=== PATIENT | female | born 2000 | race Two or more races ===

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

== ENCOUNTER 2020-05-14 12:52 | Emergency (ER) | payer MEDICAID, OTHER ==
--- NOTE | 2020-05-14 14:20 | ER Document Report ---
ED Medical Screen (RME) - General Chief Complaint: Chest Pain Stated Complaint: CHEST PAIN/SHORTNESS OF BREATH Time Seen by Provider: 05/14/20 14:07 TRAVEL OUTSIDE OF THE U[place] IN LAST 30 DAYS: No - HPI Notes: 05/14/20 14:13 19-year-old female to the emergency department with past medical history of asthma with complaints of chest pain and shortness of breath that began this morning while she was at work. She states that initially the started while she was cooking food at work and lasted for about an hour. She states it resolved but then it began again about 1230. That is when she decided to come seek medical attention. She denies any associated diaphoresis, nausea vomiting, arm pain. She does state that it radiates through to her back. She denies any history of hypertension, diabetes or hyperlipidemia. She denies any family history of heart disease but she is not completely sure what her past medical history is. She denies any cough, fever, chills, sore throat, ear pain, headache, body aches, possible COVID-19 exposures. She denies any loss of taste or smell. She states that the pain when it is very severe does feel that worse when she is taking a big deep breath but at baseline it does not seem to get worse with movement and big deep breath. She is not currently on any exogenous hormones. She is not recently been traveling. She denies any leg swelling or leg pain. Brief medical screening exam illustrates lungs clear to auscultation and heart auscultation with no murmurs rubs or gallops. She has some mild tenderness to palpation over the anterior chest wall. I performed a brief medical screening exam on the patient determined that the patient needs further evaluation and management by main side provider. I have placed initial orders to help expedite care. - Related Data Allergies/Adverse Reactions: No Known Allergies Allergy (Unverified 02/28/19 08:00) Past Medical History - Social History Frequency of alcohol use: None Drug Abuse: Marijuana Pulmonary Medical History: Reports: Hx Asthma GI Medical History: Reports: Hx Gastroesophageal Reflux Disease - Tx in [place] 2018 Past Surgical History: Reports: Hx Orthopedic Surgery - Right knee scope 2014 Physical Exam - Vital signs Vitals: Temp Pulse Resp BP Pulse Ox 98.2 F 62 18 130/70 H 100 05/14/20 13:16 05/14/20 13:16 05/14/20 13:16 05/14/20 13:16 05/14/20 13:16 Course - Vital Signs Vital signs: Temp Pulse Resp BP Pulse Ox 98.2 F 62 18 130/70 H 100 05/14/20 13:16 05/14/20 13:16 05/14/20 13:16 05/14/20 13:16 05/14/20 13:16
[2020-05-14 15:03] LABS: APPEARANCE,URINE CLEAR; BILIRUBIN,URINE NEGATIVE (NEGATIVE); COLOR,URINE YELLOW; GLUCOSE, URINE NEGATIVE (NEGATIVE); KETONES,URINE 20 mg/dL (NEGATIVE); LEUKOCYTE ESTERASE,URINE NEGATIVE (NEGATIVE); NITRITE,URINE NEGATIVE (NEGATIVE); PROTEIN,URINE NEGATIVE (NEGATIVE); URINE SPECIFIC GRAVITY 1.014; UROBILINOGEN,URINE NEGATIVE mg/dL (<2.0)
--- NOTE | 2020-05-14 15:05 | RADIOLOGY REPORT (SQ) ---
EXAM DESCRIPTION: CHEST 2 VIEWS IMAGES COMPLETED DATE/TIME: 05/14/2020 2:53 pm REASON FOR STUDY: chest pain, SOB COMPARISON: None. EXAM PARAMETERS: NUMBER OF VIEWS: two views TECHNIQUE: Digital Frontal and Lateral radiographic views of the chest acquired. RADIATION DOSE: NA LIMITATIONS: none FINDINGS: LUNGS AND PLEURA: No opacities, masses or pneumothorax. No pleural effusion. MEDIASTINUM AND HILAR STRUCTURES: No masses or contour abnormalities. HEART AND VASCULAR STRUCTURES: Heart normal size. No evidence for failure. BONES: No acute findings. HARDWARE: None in the chest. OTHER: No other significant finding. IMPRESSION: NO ACUTE RADIOGRAPHIC FINDING IN THE CHEST. TECHNICAL DOCUMENTATION: JOB ID: [id number] 2010 [employer]- All Rights Reserved Reading location - IP/workstation name: [email or web address]
[2020-05-14 15:21] LABS: ALBUMIN 4.7 g/dL (3.7-5.6); ALKALINE PHOSPHATASE 48 U/L (50-135); ANION GAP 6 (5-19); ASPARTATE AMINO TRANSFERASE 27 U/L (5-30); BILIRUBIN,DIRECT 0.1 mg/dL (0.0-0.4); BILIRUBIN,TOTAL 1.3 mg/dL (0.2-1.3); BLOOD UREA NITROGEN 12 mg/dL (7-20); CALCIUM 9.4 mg/dL (8.4-10.2); CARBON DIOXIDE 25 mmol/L (22-30); CHLORIDE 107 mmol/L (98-107); GLUCOSE 74 mg/dL (75-110); TOTAL PROTEIN 7.6 g/dL (6.3-8.2)
[2020-05-14 17:47] LABS: ABSOLUTE EOSINOPHILS # (AUTO) 0.1 10^3/uL (0.0-0.6); ABSOLUTE LYMPHOCYTES (AUTO) 2.1 10^3/uL (0.5-4.7); ABSOLUTE MONOCYTES (AUTO) 0.4 10^3/uL (0.1-1.4); ABSOLUTE NEUT (AUTO) 3.5 10^3/uL (1.7-8.2); BASOPHILS % (AUTO) 0.4 % (0-2); HEMATOCRIT 39.1 % (36.0-47.0); HEMOGLOBIN 13.1 g/dL (12.0-15.5); LYMPHOCYTES % (AUTO) 34.7 % (13-45); MEAN CORPUSCULAR HEMOGLOBIN 29.6 pg (27.0-33.4); MEAN CORPUSCULAR HGB CONC 33.4 g/dL (32.0-36.0); MEAN CORPUSCULAR VOLUME 89 fl (80-97); PLATELET COUNT 225 10^3/uL (150-450); RED BLOOD COUNT 4.41 10^6/uL (3.72-5.28); RED CELL DISTRIBUTION WIDTH 13.2 % (11.5-14.0); SEGMENTED NEUTROPHILS % (AUTO) 56.9 % (42-78); TOTAL CELLS COUNTED % (AUTO) 100 %; WHITE BLOOD COUNT 6.1 10^3/uL (4.0-10.5)
--- NOTE | 2020-05-14 17:47 | EKG REPORT ---
SEVERITY:- NORMAL ECG - SINUS RHYTHM : Confirmed by: Dutch Farah MD 14-May-2020 17:47:00
--- NOTE | 2020-05-14 18:14 | ER Document Report ---
ED General - General Chief Complaint: Chest Pain Stated Complaint: CHEST PAIN/SHORTNESS OF BREATH Time Seen by Provider: 05/14/20 14:07 TRAVEL OUTSIDE OF THE [place].S. IN LAST 30 DAYS: No - HPI Notes: Patient is a 19-year-old female who presents emergency department for evaluation of chest pain. She describes it as a tightness. It for started while she was at work today at [employer]. She states it is a tightness in her central chest. It does not radiate. She had some associated shortness of breath. She denies any nausea, diaphoresis, near syncope. She really has not had any pain like that in the past. Pain came on without any provocation, seem to go away without any sort of clear relieving factor. She had this pain return multiple times during the day. Each time it lasted 1 to 3 hours. Again with mild associated shortness of breath. She denies any recent prolonged immobilization or surgery. No personal history of cancer. No personal or family history of DVT or PE. She has no history of cancer. She has no exogenous hormone or OCP use. - Related Data Allergies/Adverse Reactions: No Known Allergies Allergy (Unverified 02/28/19 08:00) Home Medications: None Past Medical History - General Information source: Patient - Social History Smoking Status: Never Smoker Frequency of alcohol use: None Drug Abuse: Marijuana Family History: Reviewed & Not Pertinent, Hyperlipidemia, Hypertension Pulmonary Medical History: Reports: Hx Asthma GI Medical History: Reports: Hx Gastroesophageal Reflux Disease - Tx in [place] 2018 Past Surgical History: Reports: Hx Orthopedic Surgery - Right knee scope 2014 Review of Systems - Review of Systems Constitutional: No symptoms reported EENT: No symptoms reported Cardiovascular: See HPI Respiratory: See HPI Gastrointestinal: No symptoms reported Genitourinary: No symptoms reported Musculoskeletal: No symptoms reported Skin: No symptoms reported Neurological/Psychological: No symptoms reported Physical Exam - Vital signs Vitals: Temp Pulse Resp BP Pulse Ox 98.2 F 62 18 130/70 H 100 05/14/20 13:16 05/14/20 13:16 05/14/20 13:16 05/14/20 13:16 05/14/20 13:16 - Notes Notes: Vital signs reviewed, please refer to chart. Head is normocephalic, atraumatic. Pupils equal round, reactive to light. Neck is supple without meningismus. Heart is regular rate and rhythm. Lungs are clear to auscultation bilaterally. Chest wall is minimally tender to palpation. Chest wall excursion is equal bilaterally. Abdomen is soft, nontender, normoactive bowel sounds throughout. Extremities without cyanosis, clubbing. Posterior calves are nontender. Peripheral pulses are equal. Skin is warm and dry. Patient is awake, alert, neurological exam is nonfocal. Course - Re-evaluation Re-evalutation: 05/14/20 18:12 Patient presents emergency department for evaluation of chest pain. Laboratory investigations, imaging, EKG obtained. EKG fails to show any signs of ischemia or infarction. Her chest x-ray is unremarkable. Laboratory investigations revealed no significant abnormalities. Findings were explained to the patient. At this point I do not have a clear etiology for her chest pain. She has little in the way of risk factors. She is told that she should quit smoking marijuana. She is told she needs to follow-up with primary care. I will give her the information for [facility]. Otherwise, patient is to return to the emergency department with worsening or new concerning symptoms of any sort. - Vital Signs Vital signs: Temp Pulse Resp BP Pulse Ox 98.2 F 62 18 130/70 H 100 05/14/20 13:16 05/14/20 13:16 05/14/20 13:16 05/14/20 13:16 05/14/20 13:16 - Laboratory Result Diagrams: 05/14/20 17:30 05/14/20 14:30 Laboratory results interpreted by me: 05/14/20 05/14/20 14:20 14:30 Glucose 74 L Alkaline Phosphatase 48 L Urine Ketones 20 H - Diagnostic Test Radiology reviewed: Reports reviewed Radiology results interpreted by me: 05/14/20 18:12 Chest X-Ray 05/14/20 14:12 IMPRESSION: NO ACUTE RADIOGRAPHIC FINDING IN THE CHEST. - EKG Interpretation by Me Additional EKG results interpreted by me: 05/14/20 18:12 Sinus mechanism with a rate of 63 bpm. Normal axis and intervals. No acute ST changes concerning for ischemia or infarction. No studies immediately available for comparison. Discharge - Discharge Clinical Impression: Chest pain Qualifiers: Chest pain type: unspecified Qualified Code(s): R07.9 - Chest pain, unspecified Condition: Stable Disposition: HOME, SELF-CARE Instructions: Chest Pain of Unclear Cause ([facility]) Additional Instructions: No clear cause was identified for your chest pain today. Please follow[facility]up with [facility], [facility], or the primary care provider of your choice in 1 to 2 weeks. Return to the emergency department if you develop worsening or new concerning symptoms of any sort. Referrals: [facility] [NO [facility]AL MD] - Follow up as needed
[2020-05-14 18:28] VITALS: BP 140/88
== END 2020-05-14 18:28 | disposition home or self-care (01) ==
LOC: ER 12:52
DX: R07.9 Chest pain, unspecified (principal); R06.02 Shortness of breath
CPT/HCPCS: 36415; 71046; 80053; 81001; 81025; 83735; 84484; 85025; 93005; 93010; 99285